=== PATIENT | female | born 1965 | race Caucasian/White ===

== ENCOUNTER 2016-07-13 19:28 | Emergency (ER) | payer OTHER ==
[~2016-07-13] VITALS: Ht 167.6 cm; Wt 60.3 kg
--- NOTE | ~2016-07-13 | EKG ---
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 CARLISLE : 1965 Requested By: J Carlos Zamora Order Number: [id number] MD: Franko Garcia Measurements Intervals [place] Rate: 68 P: 71 AR: 130 QRS: 83 QRSD: 111 T: -27 QT: 397 QTc: 423 Interpretive Statements Sinus rhythm Atrial premature complex RSR' in V1 or V2, probably normal variant Nonspecific ST and T wave abnormality Compared to ECG 12/20/2013 08:08:43 Atrial premature complex(es) now present Electronically Signed On 07-16-2016 15:28:44 CDT by Franko Garcia [email or web address] <ELECTRONICALLY SIGNED> By: Franko Garcia MD, [facility] 07/16/16 1528 29 29 Franko Garcia MD, [facility] /EPI
[2016-07-13 20:39] LABS: ABSOLUTE NEUTROPHILS 4.1 thou/uL (1.4-8.2); BASOPHILS 0.6 % (0.0-2.0); EOSINOPHILS 0.8 % (0.0-3.0); HEMOGLOBIN 13.6 gm/dL (12.0-15.0); LYMPHOCYTES 20.3 % (24.0-44.0); MANUAL DIFF NO; MCH 32.7 pg (26.0-34.0); MCHC 34.1 g/dL (28.0-37.0); MCV 95.8 fL (80.0-100.0); PLATELET COUNT 197 thou/uL (150-400); POLYS 72.3 % (36.0-66.0); RBC 4.17 mil/uL (4.20-5.00); RDW 12.9 % (10.5-14.5); WBC 5.7 thou/uL (4.0-11.0)
[2016-07-13 20:47] LABS: ANION GAP 9 mmol/L (7-16); BUN 16 mg/dL (7-18); CALCIUM 9.3 mg/dL (8.5-10.1); CHLORIDE 102 mmol/L (98-107); CO2 27 mmol/L (21-32); CREATININE 0.8 mg/dL (0.6-1.0); GLUCOSE 94 mg/dL (74-106); POTASSIUM 3.7 mmol/L (3.5-5.1); SODIUM 138 mmol/L (136-145)
[2016-07-13 20:57] LABS: TROPONIN-I < 0.04 ng/mL (<0.04-0.07)
[2016-07-13 21:33] VITALS: BP 101/62
== END 2016-07-13 21:34 | disposition home or self-care (01) ==
LOC: ER 19:28
PROVIDERS: Emergency Medicine
DX: R00.2 Palpitations (principal); Z87.19 Personal history of other diseases of the digestive system